=== PATIENT | male | born 1980 | race Caucasian/White ===

== ENCOUNTER 2021-01-15 17:37 | Inpatient (IN) | payer OTHER ==
[2021-01-15 18:35] VITALS: BMI 32.5
[2021-01-15] MEDS ORDERED: MAGNESIUM CITRATE 300 ML BOTTLE PO PRN (19:53)
[2021-01-15] MEDS ORDERED: MAGNESIUM HYDROX 2400MG/30ML ORAL SUSPENSION 30 ML CUP PO PRN (19:53)
[2021-01-15] MEDS ORDERED: ACETAMINOPHEN 325 MG TABLET (FP) PO PRN ×2 (19:53)
[2021-01-15] MEDS ORDERED: METHOCARBAMOL 500 MG TABLET PO PRN (19:53)
[2021-01-15] MEDS ORDERED: IBUPROFEN 400 MG TABLET (FP) PO PRN (19:53)
[2021-01-15] MEDS ORDERED: ONDANSETRON *ODT* 4 MG TABLET SL PRN (19:53)
[2021-01-15] MEDS ORDERED: BISMUTH SUBSALICYLATE 524 MG/30 ML PO PRN (19:53)
[2021-01-15] MEDS ORDERED: MAG HYDROX/AL HYDROX/SIMETH 30 ML UNIT-DOSE CUP PO PRN (19:53)
[2021-01-15] MEDS ORDERED: MENTHOL/PHENOL 1 EACH UD MM PRN (19:53)
[2021-01-15] MEDS: diazePAM 5 MG TABLET PO PRN (23:36)
[2021-01-15] MEDS: MELATONIN 5 MG TABLETS PO SCH (23:39)
[2021-01-15] MEDS: THIAMINE HCL 100 MG TABLET (FP) PO SCH (23:39)
[2021-01-15] MEDS: diazePAM 5 MG TABLET PO SCH (23:42)
[2021-01-16] MEDS: diazePAM 5 MG TABLET PO SCH ×4 (05:57→22:01)
[2021-01-16] MEDS: PRENATAL VITAMINS W/ FOLIC ACID TABLET (FP) PO SCH (10:20)
[2021-01-16] MEDS: APIXABAN 5 MG TABLET PO SCH ×2 (11:12→22:02)
[2021-01-16] MEDS: MELATONIN 5 MG TABLETS PO SCH (22:02)
[2021-01-16] MEDS: THIAMINE HCL 100 MG TABLET (FP) PO SCH (22:02)
[2021-01-17] MEDS: diazePAM 5 MG TABLET PO SCH ×3 (05:48→22:07)
[2021-01-17] MEDS: PRENATAL VITAMINS W/ FOLIC ACID TABLET (FP) PO SCH (10:23)
[2021-01-17] MEDS: APIXABAN 5 MG TABLET PO SCH ×2 (10:23→22:07)
[2021-01-17] MEDS: diazePAM 5 MG TABLET PO PRN (10:23)
[2021-01-17 14:17] LABS: HEMATOCRIT 44.7 % (35.4-49); HEMOGLOBIN 15.4 GM/dL (11.7-16.9); MCH 33.1 pg (25.7-33.7); MCHC 34.5 g/dl (32.0-35.9); MEAN CELL VOLUME 96.1 fl (80-96); MEAN PLT VOLUME 8.4 fl (7.5-11.1); PLATELET COUNT 186 10^3/uL (134-434); RBC 4.65 M/mm3 (4.00-5.60); RDW 13.7 % (11.9-15.9); WHITE BLOOD COUNT 7.4 K/mm3 (4.0-10.0)
[2021-01-17 14:23] LABS: INR 0.98 (0.83-1.09); PROTHROMBIN TIME (PATIENT) 11.9 SEC (9.7-13.0)
[2021-01-17 14:28] LABS: BLOOD UREA NITROGEN 11.3 mg/dL (7-18); CALCIUM 9.1 mg/dL (8.5-10.1)
[2021-01-17 14:29] LABS: ALBUMIN 3.9 g/dl (3.4-5.0)
[2021-01-17 14:34] LABS: TOT PROT 6.6 g/dl (6.4-8.2)
[2021-01-17] MEDS: THIAMINE HCL 100 MG TABLET (FP) PO SCH (22:07)
[2021-01-17] MEDS: MELATONIN 5 MG TABLETS PO PRN (22:08)
[2021-01-18] MEDS: diazePAM 5 MG TABLET PO SCH ×2 (05:54→17:17)
[2021-01-18] MEDS: PRENATAL VITAMINS W/ FOLIC ACID TABLET (FP) PO SCH (10:14)
[2021-01-18] MEDS: APIXABAN 5 MG TABLET PO SCH ×2 (10:14→22:05)
[2021-01-18] MEDS: THIAMINE HCL 100 MG TABLET (FP) PO SCH (22:05)
[2021-01-18] MEDS: MELATONIN 5 MG TABLETS PO PRN (22:05)
[2021-01-19] MEDS ORDERED: diazePAM 5 MG TABLET PO ONE (06:00)
[2021-01-19 09:38] VITALS: BP 127/83; PULSE 54; TEMP 96.6
[2021-01-19] MEDS: APIXABAN 5 MG TABLET PO SCH (09:48)
[2021-01-19] MEDS: PRENATAL VITAMINS W/ FOLIC ACID TABLET (FP) PO SCH (09:49)
[2021-01-19 11:02] LABS: BILIRUBIN,DIRECT 0.4 mg/dL (0.0-0.2)
[2021-01-19 11:04] LABS: BILIRUBIN,TOTAL 1.7 mg/dL (0.2-1)
== END 2021-01-19 10:00 | disposition home or self-care (01) | DRG 775 ==
LOC: YASAS 17:37 → Y3N 22:25
PROVIDERS: ADMIT Allergy & Immunology; ATTEND Allergy & Immunology
PROC: HZ2ZZZZ Detoxification Services for Substance Abuse Treatment (ICD-10-PCS; principal; 2021-01-15)
DX: F10.230 Alcohol dependence with withdrawal, uncomplicated (principal); F10.220 Alcohol dependence with intoxication, uncomplicated; F10.24 Alcohol dependence with alcohol-induced mood disorder; R79.89 Other specified abnormal findings of blood chemistry; R00.0 Tachycardia, unspecified; G47.00 Insomnia, unspecified; I27.82 Chronic pulmonary embolism; Z87.891 Personal history of nicotine dependence; Z79.01 Long term (current) use of anticoagulants; Z62.810 Personal history of physical and sexual abuse in childhood; Z86.59 Personal history of other mental and behavioral disorders; Z56.0 Unemployment, unspecified
CPT/HCPCS: 36415; 80053; 82247; 82248; 84450; 84460; 85027; 85610; 86780; 93005; 93010; C9803; U0003; U0005

== ENCOUNTER 2021-03-29 18:15 | Inpatient (IN) | payer OTHER ==
[2021-03-29 22:15] VITALS: BMI 25.0
[2021-03-29] MEDS ORDERED: ONDANSETRON *ODT* 4 MG TABLET SL PRN (22:26)
[2021-03-29] MEDS ORDERED: hydrOXYzine PAMOATE 25 MG CAPSULE (FP) PO PRN (22:26)
[2021-03-29] MEDS ORDERED: ACETAMINOPHEN 325 MG TABLET (FP) PO PRN ×2 (22:26)
[2021-03-29] MEDS ORDERED: MAGNESIUM HYDROX 2400MG/30ML ORAL SUSPENSION 30 ML CUP PO PRN (22:26)
[2021-03-29] MEDS ORDERED: METHOCARBAMOL 500 MG TABLET PO PRN (22:26)
[2021-03-29] MEDS ORDERED: MAGNESIUM CITRATE 300 ML BOTTLE PO PRN (22:26)
[2021-03-29] MEDS ORDERED: MENTHOL/PHENOL 1 EACH UD MM PRN (22:26)
[2021-03-29] MEDS ORDERED: MAG HYDROX/AL HYDROX/SIMETH 30 ML UNIT-DOSE CUP PO PRN (22:26)
[2021-03-29] MEDS ORDERED: diazePAM 5 MG TABLET PO PRN (22:28)
[2021-03-29] MEDS ORDERED: diazePAM 5 MG TABLET ONE (23:06)
[2021-03-29] MEDS: diazePAM 5 MG TABLET PO SCH (23:08)
[2021-03-29] MEDS ORDERED: TRIMETHOBENZAMIDE HCL 200MG/2ML INJ IM ONE (23:11)
[2021-03-30] MEDS ORDERED: diazePAM 5 MG TABLET ONE (06:37)
[2021-03-30] MEDS: diazePAM 5 MG TABLET PO SCH ×4 (06:43→22:02)
[2021-03-30 08:25] LABS: HEMATOCRIT 43.4 % (35.4-49); HEMOGLOBIN 15.3 GM/dL (11.7-16.9); MCH 33.5 pg (25.7-33.7); MCHC 35.4 g/dl (32.0-35.9); MEAN CELL VOLUME 94.8 fl (80-96); MEAN PLT VOLUME 7.8 fl (7.5-11.1); PLATELET COUNT 220 10^3/uL (134-434); RBC 4.58 M/mm3 (4.00-5.60); RDW 13.5 % (11.9-15.9); WHITE BLOOD COUNT 3.9 K/mm3 (4.0-10.0)
[2021-03-30 08:40] LABS: ALBUMIN 4.3 g/dl (3.4-5.0); BLOOD UREA NITROGEN 13.2 mg/dL (7-18); CALCIUM 9.3 mg/dL (8.5-10.1)
[2021-03-30 08:45] LABS: BILIRUBIN,TOTAL 2.1 mg/dL (0.2-1); TOT PROT 7.6 g/dl (6.4-8.2)
[2021-03-30] MEDS ORDERED: PNEUMOC 13-VAL CONJ-DIP CRM/PF 0.5 ML DISP.SYRIN IM ONE (10:00)
[2021-03-30] MEDS: PRENATAL VITAMINS W/ FOLIC ACID TABLET (FP) PO SCH (10:17)
[2021-03-30] MEDS: APIXABAN 5 MG TABLET PO SCH ×2 (10:17→22:02)
[2021-03-30] MEDS ORDERED: cloNIDine HCL 0.1 MG TABLET PO PRN (10:41)
[2021-03-30] MEDS ORDERED: PNEUMOCOCCAL 23 VACCINE 0.5 ML VIAL IM ONE (12:00)
[2021-03-30] MEDS: THIAMINE HCL 100 MG TABLET (FP) PO SCH (22:02)
[2021-03-30] MEDS: MELATONIN 5 MG TABLETS PO SCH (22:03)
[2021-03-31] MEDS: diazePAM 5 MG TABLET PO SCH ×3 (05:28→22:00)
[2021-03-31] MEDS: PRENATAL VITAMINS W/ FOLIC ACID TABLET (FP) PO SCH (10:07)
[2021-03-31] MEDS: APIXABAN 5 MG TABLET PO SCH ×2 (10:08→22:00)
[2021-03-31] MEDS: MELATONIN 5 MG TABLETS PO SCH (22:00)
[2021-03-31] MEDS: THIAMINE HCL 100 MG TABLET (FP) PO SCH (22:00)
[2021-04-01] MEDS: diazePAM 5 MG TABLET PO SCH ×2 (06:48→17:38)
[2021-04-01] MEDS: APIXABAN 5 MG TABLET PO SCH ×2 (11:34→22:06)
[2021-04-01] MEDS: PRENATAL VITAMINS W/ FOLIC ACID TABLET (FP) PO SCH (11:34)
[2021-04-01] MEDS: THIAMINE HCL 100 MG TABLET (FP) PO SCH (22:06)
[2021-04-01] MEDS: MELATONIN 5 MG TABLETS PO SCH (22:06)
[2021-04-02] MEDS ORDERED: diazePAM 5 MG TABLET PO ONE (06:00)
[2021-04-02] MEDS: PRENATAL VITAMINS W/ FOLIC ACID TABLET (FP) PO SCH (10:20)
[2021-04-02] MEDS: APIXABAN 5 MG TABLET PO SCH (10:20)
[2021-04-02 14:21] VITALS: BP 113/65; PULSE 76; TEMP 97.1
== END 2021-04-02 18:06 | disposition other institution (70) | DRG 775 ==
LOC: YASAS 18:15 → Y6N 03-30 09:45 → Y3N 03-31 16:50
PROVIDERS: ADMIT Allergy & Immunology; ATTEND Allergy & Immunology
PROC: HZ2ZZZZ Detoxification Services for Substance Abuse Treatment (ICD-10-PCS; principal; 2021-03-30)
DX: F10.230 Alcohol dependence with withdrawal, uncomplicated (principal); F12.10 Cannabis abuse, uncomplicated; F32.9 Major depressive disorder, single episode, unspecified; F43.10 Post-traumatic stress disorder, unspecified; Z86.711 Personal history of pulmonary embolism; Z79.01 Long term (current) use of anticoagulants; Z86.16 Personal history of COVID-19
CPT/HCPCS: 36415; 80053; 85027; 86780; 90732; C9803; G0009; J0735; U0003; U0005

== ENCOUNTER 2021-04-02 18:07 | Inpatient (IN) | payer OTHER ==
[2021-04-02] MEDS ORDERED: LOPERAMIDE HCL 2 MG CAPSULE PO PRN (20:39)
[2021-04-02] MEDS ORDERED: MAGNESIUM CITRATE 300 ML BOTTLE PO PRN (20:39)
[2021-04-02] MEDS ORDERED: NICOTINE POLACRILEX 2 MG GUM BUC PRN (20:39)
[2021-04-02] MEDS ORDERED: MAGNESIUM HYDROX 2400MG/30ML ORAL SUSPENSION 30 ML CUP PO PRN (20:39)
[2021-04-02] MEDS ORDERED: ACETAMINOPHEN 325 MG TABLET (FP) PO PRN (20:39)
[2021-04-02] MEDS ORDERED: P-EPHED 60MG/TRIPROLIDI 2.5MG TABLET PO PRN (20:39)
[2021-04-02] MEDS ORDERED: IBUPROFEN 400 MG TABLET (FP) PO PRN (20:39)
[2021-04-02] MEDS ORDERED: guaiFENesin 200 MG/10 ML 10 ML UNIT-DOSE CUPS PO PRN (20:39)
[2021-04-02] MEDS ORDERED: MENTHOL/PHENOL 1 EACH UD MM PRN (20:39)
[2021-04-02] MEDS ORDERED: MAG HYDROX/AL HYDROX/SIMETH 30 ML UNIT-DOSE CUP PO PRN (20:39)
[2021-04-02] MEDS: APIXABAN 5 MG TABLET PO SCH (21:13)
[2021-04-02] MEDS: THIAMINE HCL 100 MG TABLET (FP) PO SCH (21:13)
[2021-04-02] MEDS ORDERED: MELATONIN 5 MG TABLETS PO SCH (22:00)
[2021-04-03] MEDS ORDERED: NICOTINE 14 MG/24 HOURS TOPICAL PATCH TD SCH (10:00)
[2021-04-03] MEDS: PRENATAL VITAMINS W/ FOLIC ACID TABLET (FP) PO SCH (10:18)
[2021-04-03] MEDS: APIXABAN 5 MG TABLET PO SCH ×2 (10:18→21:22)
[2021-04-03] MEDS: THIAMINE HCL 100 MG TABLET (FP) PO SCH (21:21)
[2021-04-03] MEDS: PRAZOSIN HCL 1 MG CAPSULE PO SCH (21:22)
[2021-04-04] MEDS: PRENATAL VITAMINS W/ FOLIC ACID TABLET (FP) PO SCH (10:03)
[2021-04-04] MEDS: APIXABAN 5 MG TABLET PO SCH ×2 (10:03→21:23)
[2021-04-04] MEDS: THIAMINE HCL 100 MG TABLET (FP) PO SCH (21:23)
[2021-04-04] MEDS: PRAZOSIN HCL 1 MG CAPSULE PO SCH (21:23)
[2021-04-05] MEDS: APIXABAN 5 MG TABLET PO SCH ×2 (10:09→21:17)
[2021-04-05] MEDS: PRENATAL VITAMINS W/ FOLIC ACID TABLET (FP) PO SCH (10:09)
[2021-04-05] MEDS: PRAZOSIN HCL 1 MG CAPSULE PO SCH (21:17)
[2021-04-05] MEDS: THIAMINE HCL 100 MG TABLET (FP) PO SCH (21:17)
[2021-04-06] MEDS: APIXABAN 5 MG TABLET PO SCH ×2 (09:38→21:33)
[2021-04-06] MEDS: PRENATAL VITAMINS W/ FOLIC ACID TABLET (FP) PO SCH (09:38)
[2021-04-06] MEDS: THIAMINE HCL 100 MG TABLET (FP) PO SCH (21:33)
[2021-04-06] MEDS: PRAZOSIN HCL 1 MG CAPSULE PO SCH (21:33)
[2021-04-07] MEDS: PRENATAL VITAMINS W/ FOLIC ACID TABLET (FP) PO SCH (09:59)
[2021-04-07] MEDS: APIXABAN 5 MG TABLET PO SCH ×2 (09:59→21:26)
[2021-04-07] MEDS: PRAZOSIN HCL 1 MG CAPSULE PO SCH (21:26)
[2021-04-07] MEDS: THIAMINE HCL 100 MG TABLET (FP) PO SCH (21:27)
[2021-04-08] MEDS: APIXABAN 5 MG TABLET PO SCH ×2 (09:53→21:35)
[2021-04-08] MEDS: PRENATAL VITAMINS W/ FOLIC ACID TABLET (FP) PO SCH (09:53)
[2021-04-08] MEDS: THIAMINE HCL 100 MG TABLET (FP) PO SCH (21:35)
[2021-04-08] MEDS: PRAZOSIN HCL 1 MG CAPSULE PO SCH (21:35)
[2021-04-09] MEDS: APIXABAN 5 MG TABLET PO SCH ×2 (09:48→21:22)
[2021-04-09] MEDS: PRENATAL VITAMINS W/ FOLIC ACID TABLET (FP) PO SCH (09:48)
[2021-04-09] MEDS: THIAMINE HCL 100 MG TABLET (FP) PO SCH (21:21)
[2021-04-09] MEDS: PRAZOSIN HCL 1 MG CAPSULE PO SCH (21:21)
[2021-04-09] MEDS ORDERED: PT OWN MED DRAWER 7, Y5N ONE (21:54)
[2021-04-10] MEDS: APIXABAN 5 MG TABLET PO SCH ×2 (10:00→21:21)
[2021-04-10] MEDS: PRENATAL VITAMINS W/ FOLIC ACID TABLET (FP) PO SCH (10:00)
[2021-04-10] MEDS: THIAMINE HCL 100 MG TABLET (FP) PO SCH (21:21)
[2021-04-10] MEDS: PRAZOSIN HCL 1 MG CAPSULE PO SCH (21:21)
[2021-04-11] MEDS: APIXABAN 5 MG TABLET PO SCH ×2 (09:45→21:23)
[2021-04-11] MEDS: PRENATAL VITAMINS W/ FOLIC ACID TABLET (FP) PO SCH (09:45)
[2021-04-11] MEDS: THIAMINE HCL 100 MG TABLET (FP) PO SCH (21:23)
[2021-04-11] MEDS: PRAZOSIN HCL 1 MG CAPSULE PO SCH (21:23)
[2021-04-12] MEDS: PRENATAL VITAMINS W/ FOLIC ACID TABLET (FP) PO SCH (09:45)
[2021-04-12] MEDS: APIXABAN 5 MG TABLET PO SCH ×2 (09:45→21:01)
[2021-04-12] MEDS: THIAMINE HCL 100 MG TABLET (FP) PO SCH (21:00)
[2021-04-12] MEDS: PRAZOSIN HCL 1 MG CAPSULE PO SCH (21:01)
[2021-04-13] MEDS: APIXABAN 5 MG TABLET PO SCH ×2 (09:41→21:08)
[2021-04-13] MEDS: PRENATAL VITAMINS W/ FOLIC ACID TABLET (FP) PO SCH (09:41)
[2021-04-13] MEDS: PRAZOSIN HCL 1 MG CAPSULE PO SCH (21:08)
[2021-04-13] MEDS: THIAMINE HCL 100 MG TABLET (FP) PO SCH (21:09)
[2021-04-14 07:00] VITALS: BP 131/88; PULSE 78; TEMP 97.1
== END 2021-04-14 08:24 | disposition home or self-care (01) | DRG 772 ==
LOC: YASAS 18:07 → Y3E 18:08
PROVIDERS: ADMIT Allergy & Immunology; ATTEND Allergy & Immunology
PROC: HZ42ZZZ Group Counseling for Substance Abuse Treatment, Cognitive-Behavioral (ICD-10-PCS; principal; 2021-04-02)
DX: F10.20 Alcohol dependence, uncomplicated (principal); F12.20 Cannabis dependence, uncomplicated; F10.24 Alcohol dependence with alcohol-induced mood disorder; F10.282 Alcohol dependence with alcohol-induced sleep disorder; F32.9 Major depressive disorder, single episode, unspecified; F43.10 Post-traumatic stress disorder, unspecified; Z62.810 Personal history of physical and sexual abuse in childhood; Z86.711 Personal history of pulmonary embolism; Z86.718 Personal history of other venous thrombosis and embolism; Z79.01 Long term (current) use of anticoagulants

== ENCOUNTER 2021-10-03 15:58 | Inpatient (IN) | payer OTHER ==
[2021-10-03] MEDS ORDERED: MAGNESIUM HYDROX 2400MG/30ML ORAL SUSPENSION 30 ML CUP PO PRN (17:45)
[2021-10-03] MEDS ORDERED: ACETAMINOPHEN 325 MG TABLET (FP) PO PRN ×2 (17:45)
[2021-10-03] MEDS ORDERED: MENTHOL/PHENOL 1 EACH UD MM PRN (17:45)
[2021-10-03] MEDS ORDERED: MAGNESIUM CITRATE 300 ML BOTTLE PO PRN (17:45)
[2021-10-03] MEDS ORDERED: MAG HYDROX/AL HYDROX/SIMETH 30 ML UNIT-DOSE CUP PO PRN (17:45)
[2021-10-03] MEDS ORDERED: ONDANSETRON *ODT* 4 MG TABLET SL PRN (17:45)
[2021-10-03] MEDS ORDERED: LOPERAMIDE HCL 2 MG CAPSULE PO PRN (17:45)
[2021-10-03] MEDS ORDERED: chlordiazePOXIDE HCL 25 MG CAPSULE PO PRN (17:47)
[2021-10-03] MEDS: chlordiazePOXIDE HCL 25 MG CAPSULE PO SCH ×2 (18:07→22:04)
[2021-10-03 18:14] VITALS: BMI 24.9
[2021-10-03] MEDS: hydrOXYzine PAMOATE 25 MG CAPSULE (FP) PO PRN (19:45)
[2021-10-03] MEDS: METHOCARBAMOL 500 MG TABLET PO PRN (19:45)
[2021-10-03] MEDS: APIXABAN 5 MG TABLET PO SCH (22:03)
[2021-10-03] MEDS: THIAMINE HCL 100 MG TABLET (FP) PO SCH (22:03)
[2021-10-03] MEDS: MELATONIN 5 MG TABLETS PO PRN (22:03)
[2021-10-04] MEDS: hydrOXYzine PAMOATE 25 MG CAPSULE (FP) PO PRN ×2 (01:35→22:23)
[2021-10-04] MEDS: chlordiazePOXIDE HCL 25 MG CAPSULE PO SCH ×4 (05:16→22:23)
[2021-10-04] MEDS: PRENATAL VITAMINS W/ FOLIC ACID TABLET (FP) PO SCH (10:11)
[2021-10-04] MEDS: APIXABAN 5 MG TABLET PO SCH ×2 (10:11→22:23)
[2021-10-04 11:03] LABS: HEMATOCRIT 41.9 % (35.4-49); HEMOGLOBIN 14.2 GM/dL (11.7-16.9); MCH 30.7 pg (25.7-33.7); MCHC 33.9 g/dl (32.0-35.9); MEAN CELL VOLUME 90.6 fl (80-96); MEAN PLT VOLUME 7.9 fl (7.5-11.1); PLATELET COUNT 214 10^3/uL (134-434); RBC 4.62 M/mm3 (4.00-5.60); RDW 14.3 % (11.9-15.9); WHITE BLOOD COUNT 5.2 K/mm3 (4.0-10.0)
[2021-10-04 11:12] LABS: BLOOD UREA NITROGEN 18.4 mg/dL (7-18)
[2021-10-04 11:14] LABS: ALBUMIN 4.1 g/dl (3.4-5.0); BILIRUBIN,TOTAL 2.5 mg/dL (0.2-1); CALCIUM 9.3 mg/dL (8.5-10.1); TOT PROT 6.8 g/dl (6.4-8.2)
[2021-10-04 11:17] LABS: CREATININE 0.9 mg/dL (0.55-1.3)
[2021-10-04 12:08] LABS: SARS-CoV-2 NAA Not Detected (Not Detected)
[2021-10-04] MEDS ORDERED: FLU VACC QS2021-22(6MOS UP)/PF 60 MCG/0.5 ML SYRINGE IM ONE (13:00)
[2021-10-04] MEDS: METHOCARBAMOL 500 MG TABLET PO PRN (22:23)
[2021-10-04] MEDS: THIAMINE HCL 100 MG TABLET (FP) PO SCH (22:23)
[2021-10-05] MEDS: chlordiazePOXIDE HCL 25 MG CAPSULE PO SCH ×4 (05:10→22:16)
[2021-10-05] MEDS: PRENATAL VITAMINS W/ FOLIC ACID TABLET (FP) PO SCH (10:09)
[2021-10-05] MEDS: APIXABAN 5 MG TABLET PO SCH ×2 (10:09→22:14)
[2021-10-05] MEDS: THIAMINE HCL 100 MG TABLET (FP) PO SCH (22:14)
[2021-10-06] MEDS ORDERED: chlordiazePOXIDE HCL 10 MG CAPSULE PO PRN
[2021-10-06] MEDS: chlordiazePOXIDE HCL 10 MG CAPSULE PO SCH ×4 (05:09→22:07)
[2021-10-06 10:07] LABS: SARS-CoV-2 NAA Not Detected (Not Detected)
[2021-10-06] MEDS: APIXABAN 5 MG TABLET PO SCH ×2 (10:17→22:07)
[2021-10-06] MEDS: PRENATAL VITAMINS W/ FOLIC ACID TABLET (FP) PO SCH (10:17)
[2021-10-06 12:14] LABS: BLOOD UREA NITROGEN 11.5 mg/dL (7-18)
[2021-10-06 12:19] LABS: BILIRUBIN,TOTAL 1.3 mg/dL (0.2-1)
[2021-10-06] MEDS: THIAMINE HCL 100 MG TABLET (FP) PO SCH (22:07)
[2021-10-07] MEDS: chlordiazePOXIDE HCL 10 MG CAPSULE PO SCH ×2 (05:19→17:47)
[2021-10-07] MEDS: APIXABAN 5 MG TABLET PO SCH ×2 (10:18→22:23)
[2021-10-07] MEDS: PRENATAL VITAMINS W/ FOLIC ACID TABLET (FP) PO SCH (10:18)
[2021-10-07] MEDS: THIAMINE HCL 100 MG TABLET (FP) PO SCH (22:23)
[2021-10-07] MEDS: METHOCARBAMOL 500 MG TABLET PO PRN (22:23)
[2021-10-07] MEDS: MELATONIN 5 MG TABLETS PO PRN (22:24)
[2021-10-08] MEDS ORDERED: chlordiazePOXIDE HCL 10 MG CAPSULE PO ONE (05:00)
[2021-10-08 09:18] VITALS: BP 152/90; PULSE 97; TEMP 97.2
== END 2021-10-08 10:48 | disposition home or self-care (01) | DRG 775 ==
LOC: YASAS 15:58 → Y3N 18:43
PROVIDERS: ADMIT Allergy & Immunology; ATTEND Allergy & Immunology
PROC: HZ2ZZZZ Detoxification Services for Substance Abuse Treatment (ICD-10-PCS; principal; 2021-10-03)
DX: F10.230 Alcohol dependence with withdrawal, uncomplicated (principal); F32.A Depression, unspecified; E80.6 Other disorders of bilirubin metabolism; D68.51 Activated protein C resistance; R74.01 Elevation of levels of liver transaminase levels; Z86.711 Personal history of pulmonary embolism; Z79.01 Long term (current) use of anticoagulants; Z86.16 Personal history of COVID-19
CPT/HCPCS: 36415; 80053; 82247; 84450; 84520; 85027; 86780; 87811; 90686; C9803-CS; G0008; U0003; U0005